=== PATIENT | female | born 1985 | race Two or more races ===

== ENCOUNTER 2023-02-21 13:27 | Emergency (ER) | payer OTHER ==
[~2023-02-21] VITALS: Ht 170.2 cm; Wt 77.1 kg
[2023-02-21] MEDS ORDERED: RHOGAM ULTR1500 UNIT IM (17:49)
== END 2023-02-21 17:55 | disposition home or self-care (01) ==
LOC: ER 13:27
DX: O20.9 Hemorrhage in early pregnancy, unspecified (principal); Z3A.01 Less than 8 weeks gestation of pregnancy

== ENCOUNTER 2023-02-21 23:10 | Emergency (ER) | payer OTHER ==
[~2023-02-21] VITALS: Ht 170.2 cm; Wt 72.6 kg
[~2023-02-21 23:10] MED LIST: RHOGAM ULTR1500 UNIT IM
== END 2023-02-22 07:00 ==
LOC: ER 23:10
DX: O03.9 Complete or unspecified spontaneous abortion without complication (principal)